=== PATIENT | male | born 1965 | race Caucasian/White ===

== ENCOUNTER 2024-07-22 15:06 | Inpatient (IN) | payer OTHER ==
[~2024-07-22] VITALS: Ht 175.3 cm; Wt 97.1 kg
[2024-07-22] MEDS ORDERED: TDAP [DIPH/PERTUSSIS/TET] 0.5 ML VIAL IM ONE (15:46)
[2024-07-22 16:02] LABS: BASOPHILS % (AUTO) 0.6 % (0.0-2.0); EOSINOPHILS # (AUTO) 0.1 K/uL (0.0-0.7); EOSINOPHILS % (AUTO) 1.4 % (0.0-6.0); HEMATOCRIT 41 % (39-51); HEMOGLOBIN 13.2 g/dL (13.5-17.5); LYMPHOCYTES # (AUTO) 0.8 K/uL (0.8-4.8); LYMPHOCYTES % (AUTO) 9.4 % (20.0-44.0); MEAN CORPUSCULAR HEMOGLOBIN 28 PG (26.0-33.0); MEAN CORPUSCULAR HGB CONC 33 g/dl (31.0-36.0); MEAN CORPUSCULAR VOLUME 86 fL (80-96); MONOCYTES # (AUTO) 0.9 K/uL (0.1-1.30); MONOCYTES % (AUTO) 11.2 % (2.0-12.0); NEUTROPHILS # (AUTO) 6.2 K/uL (1.8-8.9); NEUTROPHILS % (AUTO) 77.4 % (43.0-81.0); RED BLOOD CELL COUNT(AUTO) 4.72 MIL/uL (4.5-6.0); RED CELL DISTRIBUTION WIDTH 13.3 % (11.5-15.0)
[2024-07-22] MEDS: CEFAZOLIN 2 GM in IV D5W 100 ML IV ONE (16:10)
[2024-07-22] MEDS: TDAP [DIPH/PERTUSSIS/TET] 0.5 ML VIAL IM ONE (16:10)
[2024-07-22 16:16] LABS: INR 0.99 (0.91-1.10); PROTHROMBIN TIME 10.5 SECS (9.2-11.1)
[2024-07-22 16:23] LABS: LACTIC ACID 2.9 mmol/L (0.4-2.0)
[2024-07-22 16:24] LABS: CALCIUM, SERUM 9.3 mg/dL (8.5-10.1); CARBON DIOXIDE 30 mmol/L (21-32); CHLORIDE 101 mmol/L (98-107); CREATININE 1.2 mg/dL (0.6-1.3); GLUCOSE 122 mg/dL (74-106); POTASSIUM 3.6 mmol/L (3.5-5.1); SODIUM SERUM 138 mmol/L (136-145); UREA NITROGEN, BLOOD 19 mg/dL (7-18)
[2024-07-22 16:28] LABS: ALANINE AMINOTRANSFERASE 40 U/L (12-78); ALBUMIN 2.6 g/dL (3.4-5.0); ALKALINE PHOSPHATASE 88 U/L (46-116); ASPARTATE AMINOTRANSFERASE 29 U/L (15-37); BILIRUBIN,DIRECT 0.1 mg/dL (0.0-0.2); BILIRUBIN,TOTAL 0.5 mg/dL (0.2-1.0); TOTAL PROTEIN, SERUM 7.5 g/dL (6.4-8.2)
[2024-07-22] MEDS ORDERED: IOHEXOL-350 100 ML VIAL IV ONE (16:49)
[2024-07-22] MEDS ORDERED: IV NS 0.9% 250 ML IV ONE (16:49)
[2024-07-22 16:52] LABS: PLATELET ESTIMATE ADEQU
[2024-07-22 16:53] LABS: PLATELET COUNT (AUTO) 220 K/uL (150-450)
[2024-07-22] MEDS: VANCOMYCIN 1 GM in IV D5W 250 ML IV ONE (17:35)
[2024-07-22 18:30] VITALS: O2SAT 97
[2024-07-22 21:25] VITALS: BP 122/82; TEMP 98.4; O2SAT 98
[2024-07-22] MEDS ORDERED: MAGNESIUM HYDROXIDE 30 ML UDC PO PRN (21:30)
[2024-07-22] MEDS ORDERED: MAG HYDROX/AL HYDROX/SIMETH 30 ML UDC PO PRN (21:30)
[2024-07-22] MEDS ORDERED: ACETAMINOPHEN 325 MG TABLET PO PRN (21:30)
[2024-07-22] MEDS ORDERED: ONDANSETRON HCL/PF 4 MG/2 ML VIAL IVP PRN (21:30)
[2024-07-22] MEDS ORDERED: Z GUARD REMEDY 4 OZ OINT TP PRN (21:30)
[2024-07-22] MEDS: ZOLPIDEM TARTRATE 5 MG TABLET PO PRN (23:19)
[2024-07-23 06:53] LABS: BASOPHILS % (AUTO) 0.3 % (0.0-2.0); EOSINOPHILS # (AUTO) 0.1 K/uL (0.0-0.7); EOSINOPHILS % (AUTO) 1.9 % (0.0-6.0); HEMATOCRIT 40 % (39-51); HEMOGLOBIN 13.2 g/dL (13.5-17.5); LYMPHOCYTES # (AUTO) 0.9 K/uL (0.8-4.8); LYMPHOCYTES % (AUTO) 14.1 % (20.0-44.0); MEAN CORPUSCULAR HEMOGLOBIN 29 PG (26.0-33.0); MEAN CORPUSCULAR HGB CONC 33 g/dl (31.0-36.0); MEAN CORPUSCULAR VOLUME 86 fL (80-96); MONOCYTES # (AUTO) 0.7 K/uL (0.1-1.30); MONOCYTES % (AUTO) 10.9 % (2.0-12.0); NEUTROPHILS # (AUTO) 4.5 K/uL (1.8-8.9); NEUTROPHILS % (AUTO) 72.8 % (43.0-81.0); PLATELET COUNT (AUTO) 246 K/uL (150-450); RED BLOOD CELL COUNT(AUTO) 4.62 MIL/uL (4.5-6.0); RED CELL DISTRIBUTION WIDTH 13.2 % (11.5-15.0); WHITE BLOOD COUNT (AUTO) 6.2 K/uL (4.3-11.0)
[2024-07-23] MEDS: VANCOMYCIN HCL 1.25 GM in IV D5W 250 ML IV ONE (07:00)
[2024-07-23 07:12] LABS: ALBUMIN 2.3 g/dL (3.4-5.0); BILIRUBIN,DIRECT 0.1 mg/dL (0.0-0.2); BILIRUBIN,TOTAL 0.4 mg/dL (0.2-1.0); CALCIUM, SERUM 8.8 mg/dL (8.5-10.1); PHOSPHORUS 3.3 mg/dL (2.5-4.9); POTASSIUM 3.6 mmol/L (3.5-5.1); TOTAL PROTEIN, SERUM 6.5 g/dL (6.4-8.2)
[2024-07-23 07:23] LABS: THYROID STIMULATING HORMONE 8.94 uIU/mL (0.358-3.74)
[2024-07-23 07:29] LABS: LACTIC ACID 0.7 mmol/L (0.4-2.0)
[2024-07-23] MEDS: PANTOPRAZOLE 40 MG TABLET.DR PO SCH (07:47)
[2024-07-23 08:00] VITALS: BP 103/63; TEMP 98; O2SAT 96
[2024-07-23] MEDS: NEOMY SULF/BACITRAC ZN/POLY 15 GM TUBE TP SCH (09:45)
[2024-07-23] MEDS: LIDOCAINE HCL/PF 1% 30 ML SDV IJ ONE (13:00)
[2024-07-23 16:00] VITALS: BP 112/73; TEMP 98.2; O2SAT 99
[2024-07-23] MEDS: CLOTRIMAZOLE/BETAMETASONE DIPROPIONATE 15 GM TUBE TP SCH (17:06)
[2024-07-23] MEDS: MUPIROCIN OINT 2% 22 GM TUBE TP SCH (17:06)
[2024-07-23] MEDS: VANCOMYCIN HCL 1.25 GM in IV D5W 250 ML IV SCH (19:44)
[2024-07-23 20:00] VITALS: BP 109/65; TEMP 98.1; O2SAT 95
[2024-07-23] MEDS ORDERED: VANCOMYCIN 1 GM in IV D5W 250ml IV SCH (20:00)
[2024-07-23 21:26] LABS: PROTEIN, BODY FLUID 3.9 G/DL
[2024-07-23 21:35] LABS: TOTAL VOLUME,BODY FLUID 45 mL
[2024-07-23 22:39] LABS: APPEARANCE,SPUN,BODY FLUID CLEAR (CLEAR)
[2024-07-23 23:04] LABS: MONOCYTES,BODY FLUID 6 %; POLYNUCLEAR, BODY FLUID 12 % (0-25)
[2024-07-24 07:02] LABS: CALCIUM, SERUM 8.7 mg/dL (8.5-10.1); CREATININE 1.1 mg/dL (0.6-1.3); POTASSIUM 3.8 mmol/L (3.5-5.1)
[2024-07-24 08:00] VITALS: BP 109/64; TEMP 98.2; O2SAT 98
[2024-07-24 16:10] VITALS: BP 95/69; TEMP 98.6; O2SAT 98
[2024-07-24] MEDS: ENOXAPARIN SODIUM 40 MG/0.4 ML DISP.SYRIN SQ SCH (16:25)
[2024-07-24 20:00] VITALS: BP 105/74; TEMP 98.1; O2SAT 96
[2024-07-25 06:53] LABS: CALCIUM, SERUM 8.8 mg/dL (8.5-10.1); CREATININE 1.1 mg/dL (0.6-1.3); POTASSIUM 3.9 mmol/L (3.5-5.1)
[2024-07-25 07:00] VITALS: BP 116/85; TEMP 98.2; O2SAT 95
[2024-07-25] MEDS: LEVOTHYROXINE SODIUM 25 MCG TABLET PO SCH (07:46)
[2024-07-25] MEDS ORDERED: Neomy Sulf/Bacitrac Zn/Poly TP (14:13)
[2024-07-25] MEDS ORDERED: MUPI22OI7 TP (14:13)
[2024-07-25] MEDS ORDERED: CLOT15CR5 TP (14:13)
[2024-07-25] MEDS ORDERED: LEVO25TA7 PO (14:13)
[2024-07-25] MEDS ORDERED: LINE600T12 PO (14:13)
== END 2024-07-25 15:25 | disposition home or self-care (01) | DRG 351 ==
LOC: ER 15:15 → TELE 20:51 → MED 07-23 11:05
PROVIDERS: ADMIT Nurse Practitioner Family; ATTEND Nurse Practitioner Acute Care
PROC: 0S9C3ZX Drainage of Right Knee Joint, Percutaneous Approach, Diagnostic (ICD-10-PCS; principal; 2024-07-23)
DX: M70.51 Other bursitis of knee, right knee (principal); E87.20 Acidosis, unspecified; E44.1 Mild protein-calorie malnutrition; L03.115 Cellulitis of right lower limb; E88.09 Other disorders of plasma-protein metabolism, not elsewhere classified; S91.311A Laceration without foreign body, right foot, initial encounter; B35.3 Tinea pedis; E66.9 Obesity, unspecified; E05.90 Thyrotoxicosis, unspecified without thyrotoxic crisis or storm; Z68.31 Body mass index [BMI] 31.0-31.9, adult; R73.9 Hyperglycemia, unspecified; X58.XXXA Exposure to other specified factors, initial encounter; Y92.9 Unspecified place or not applicable; S91.312A Laceration without foreign body, left foot, initial encounter
CPT/HCPCS: 36415; 71045-TC; 73701-TC; 80048-TC; 80076-TC; 80202-TC; 83605-TC; 83735-TC; 84100-TC; 84439-TC; 84443-TC; 84484-TC; 85025-TC; 85652-TC; 85730-TC; 86140-TC; 87040-TC; 87086-TC; 89051-TC; 89060-TC; 90715; 93970-TC; 97110-TC; 97116-TC; 97530-TC; A4223; A6253; A6403; G0378; J0690; J1650; J3370; J3490; J7050; J7060; Q9967